=== PATIENT | male | born 1945 | race Caucasian/White ===

== ENCOUNTER 2019-06-20 14:03 | Inpatient (IN) | payer MEDICARE ==
[~2019-06-20] VITALS: Ht 182.9 cm; Wt 79.4 kg
[2019-06-20 14:57] LABS: BASOPHILS 0.1 % (0-2); EOSINOPHILS 0.5 % (0-7); HEMATOCRIT 46.6 % (42.0-54.0); HEMOGLOBIN 16.3 g/dL (13.5-17.5); IMMATURE GRANULOCYTES 0.1 % (0-5); LYMPHOCYTES 24.6 % (15-50); MCH 31.8 pg (26.0-34.0); MONOCYTES 6.9 % (2-11); NEUTROPHILS 67.8 % (40-80); PLATELET COUNT 215 10x3/uL (130-400); RBC 5.12 10x6/uL (4.20-6.10); WBC 8.1 10x3/uL (4.8-10.8)
[2019-06-20 15:16] LABS: CALC OSMOLALITY 274 mosm/kg (275-300); CALCIUM 9.1 mg/dL (8.5-10.1); CARBON DIOXIDE 25.9 mmol/L (21.0-32.0); CHLORIDE - SERUM 101 mmol/L (98-107); CREATININE - SERUM 0.9 mg/dL (0.6-1.3); GLUCOSE 160 mg/dL (74-106); POTASSIUM - SERUM 3.9 mmol/L (3.5-5.1); SODIUM 135 mmol/L (136-145); UREA NITROGEN 18 mg/dL (7-18); eGFR NON AFRICAN AMERICAN 88 mL/min (90-120)
[2019-06-20 15:37] LABS: ALBUMIN 3.5 g/dL (3.4-5.0); ALKALINE PHOSPHATASE 63 U/L (30-120); CKMB 0.6 U/L (0.0-3.6); CREATINE KINASE 65 UL (21-232); FERRITIN 436 ng/mL (3-244); PROTEIN - SERUM 6.8 g/dL (6.4-8.2)
[2019-06-20 15:39] LABS: ALT (SGPT) < 6 U/L (10-68); C-REACTIVE PROTEIN < 0.2 mg/dL (0.0-0.9); TROPONIN-I < 0.017 ng/mL (0.000-0.060)
[2019-06-20] MEDS ORDERED: NEURONTIN600 MG PO (16:37)
[2019-06-20] MEDS ORDERED: CATAPRES0.1 MG PO (17:25)
[2019-06-20] MEDS ORDERED: BAYER CHEWABLE81 MG PO (17:25)
[2019-06-20] MEDS ORDERED: HYTRIN1 MG PO (17:25)
[2019-06-20] MEDS ORDERED: HYDROCHLOROTHIA25 MG PO (17:25)
[2019-06-20] MEDS ORDERED: NORVASC10 MG (17:25)
[2019-06-20] MEDS ORDERED: HYDROCODON-ACE1 EAC7 PO (17:26)
[2019-06-20] MEDS ORDERED: [UNRECOGNIZED DRUG - OTHER] TP (17:26)
[2019-06-20] MEDS ORDERED: ZOVIRAX800 MG PO (17:26)
[2019-06-20] MEDS ORDERED: PRED MILD 0.1210 ML RIGHT EYE (17:27)
[2019-06-20] MEDS ORDERED: ERYTHROMYCIN OPT1 GM OP (17:27)
[2019-06-20 17:29] VITALS: BP 116/75
[2019-06-20 20:32] VITALS: BP 152/75
[2019-06-20 20:58] VITALS: BP 152/75; BMI 23.8
[2019-06-21 00:23] VITALS: BP 135/80
--- NOTE | 2019-06-21 01:56 | NUR ---
RECEIVED REPORT FROM ER. ARRIVED TO FLOOR ON STRETCHER. ALERT AND ORIENTED X4. IV TO LT FA INFUSUING ROCEPHIN. NO REDNESS OR SWELLING TO IV SITE WITH DSG INTACT. STATES HE HAS RECENTLY BEEN DIAGNOSIED WITH SHINGLES TO HIS TO HIS RT EYE. C/O PAIN TO RT EYE. NOTIFIED Marichuy [facility]AA[facility] APN ABOUT SHINGLES AND ALLERGY TO CODEINE AND ALERT ON MORPHINE. STATES FIND OUT WHAT MEDICATION HE IS TAKING AND RESTART. REVIEWED MED LIST AND RESTARTED ERYTHROMYCIN OPTH. ALSO N.O TO RESTART GABAPENTIN. WHEN REENTERED ROOM PT WAS ASLEEP. REPORTED TWO FALLS EARLIER TODAY AT HOME. FALL PRECAUTIONS IN PLACE. ASSESSMENTS COMPLETED.
[2019-06-21 06:02] LABS: BASOPHILS 0.3 % (0-2); HEMATOCRIT 41.1 % (42.0-54.0); HEMOGLOBIN 13.7 g/dL (13.5-17.5); IMMATURE GRANULOCYTES 0.3 % (0-5); MCHC 33.3 g/dL (31.0-37.0); MEAN PLATELET VOLUME 10.2 fL (7.4-10.4); MONOCYTES 6.4 % (2-11); PLATELET COUNT 183 10x3/uL (130-400); RBC 4.42 10x6/uL (4.20-6.10); RDW 13.1 % (11.5-14.5); WBC 7.8 10x3/uL (4.8-10.8)
[2019-06-21 06:13] LABS: CALC OSMOLALITY 279 mosm/kg (275-300); CALCIUM 8.1 mg/dL (8.5-10.1); CHLORIDE - SERUM 104 mmol/L (98-107); CREATININE - SERUM 0.8 mg/dL (0.6-1.3); GLUCOSE 142 mg/dL (74-106); POTASSIUM - SERUM 3.5 mmol/L (3.5-5.1); SODIUM 139 mmol/L (136-145); eGFR NON AFRICAN AMERICAN > 90 mL/min (90-120)
[2019-06-21 06:17] LABS: UREA NITROGEN 13 mg/dL (7-18)
--- NOTE | 2019-06-21 08:54 | NUR ---
PT SITTING ON SIDE OF BED AND BREAKFAST TRAY DELIVERED. RIGHT EYE SWOLLEN, RED, AND PAINFUL. PT STATES IT IS SHINGLES. EYE OINTMENT ON MAY.
[2019-06-21 09:50] VITALS: BP 122/84
--- NOTE | 2019-06-21 13:01 | NUR ---
ORTHOSTATIC BP FOLLOWS: LYING 140/89,92 HR, 97% PULSE OX. SITTING 140/83, 102 HR, 96% PULSE OX. STANDING 133/84, 110 HR, 97% PULSE OX.
[2019-06-21 16:27] LABS: BILIRUBIN NEGATIVE (NEGATIVE); GLUCOSE NEGATIVE (NEGATIVE); KETONE NEGATIVE (NEGATIVE); NITRITE NEGATIVE (NEGATIVE); UROBILINOGEN NORMAL (NORMAL)
--- NOTE | 2019-06-21 19:26 | NUR ---
RECEIVED LAYING IN BED WITH EYES OPEN. ALERT AND ORIENTED X4. UP AD DIANNA TO B/R. CONT TO REFUSE BED ALARM. O2@ 2 [address] PER NC IN PL[address]. IV TO LT FA WITH NS AT 75CC/HR. RT AND LT EYE JOSE ANGEL. C/O BLIND BEING OPEN TO AND THE SUNLIGHT REALLY BOTHERED HIS EYE. BLINDS CLOSED AT THIS TIME. KEEPS HAND OVER HIS RT EYE AND NOW COVERING LT EYE. DENIES ANY PAIN TO LF EYE.
[2019-06-21 22:04] VITALS: BP 148/105
[2019-06-21 22:47] VITALS: BP 144/94
--- NOTE | 2019-06-22 00:33 | NUR ---
C/O PAIN TO RT EYE AT 10 AND LIGHT SENSATIVE. HAD BEEN RUBBING THE EYE. ASKED IF IT WAS DRAINING AND HE SAID A LITTLE BIT. EXPLAINED THAT IT WAS CONTAGEOUS. PLACED 2X2 AND NON ADHERENT PAD ON EYE. ASKED HIM TO WASH HIS HANDS FREQUENTLY. REMAINS IN ISOLATION. MORPHINE GIVEN FOR PAIN. SHORTLY AFTER HR BECAME IRREGULAR SPIKEING UP TO 150 AND 140'S. B/P HAD ALS BEEN ELEVATED. CALLED [facility] WITH NEW ORDERS. PT AWARE OF NEW ORDERS. WHEN SPEAKING TO CIGAR HEAD PIERCER PULSE HAD DROPPED TO 87 AND SR. BLOOD PRESSURE HAS ALSO LOWERED TO 144/80. NEW ORDERS ARE APRESOLINE 10 MG IV FOR B/P <170 OR DIASTOLIC >105. CONSULT FOR CARDIOLOGY AND PHARMACY CONSULT FOR PREDNISON EYE GTT. RESTING IN BED WITH EYES CLOSED AT THIS TIME.WILL CONT. TO OBSERVE.
[2019-06-22 03:44] VITALS: BP 159/104
[2019-06-22 05:48] LABS: BASOPHILS 0.4 % (0-2); EOSINOPHILS 2.3 % (0-7); HEMATOCRIT 42.4 % (42.0-54.0); HEMOGLOBIN 14.2 g/dL (13.5-17.5); IMMATURE GRANULOCYTES 0.3 % (0-5); LYMPHOCYTES 33.8 % (15-50); MCH 31.2 pg (26.0-34.0); MCHC 33.5 g/dL (31.0-37.0); MCV 93.2 fL (80.0-100.0); MEAN PLATELET VOLUME 10.5 fL (7.4-10.4); MONOCYTES 8.1 % (2-11); NEUTROPHILS 55.1 % (40-80); PLATELET COUNT 203 10x3/uL (130-400); RBC 4.55 10x6/uL (4.20-6.10); RDW 12.9 % (11.5-14.5)
[2019-06-22 05:51] LABS: CALCIUM 8.6 mg/dL (8.5-10.1); CARBON DIOXIDE 30.7 mmol/L (21.0-32.0); CHLORIDE - SERUM 104 mmol/L (98-107); CREATININE - SERUM 0.8 mg/dL (0.6-1.3); GLUCOSE 146 mg/dL (74-106); SODIUM 141 mmol/L (136-145); eGFR NON AFRICAN AMERICAN > 90 mL/min (90-120)
[2019-06-22 05:54] LABS: CALC OSMOLALITY 281 mosm/kg (275-300); POTASSIUM - SERUM 4.3 mmol/L (3.5-5.1); UREA NITROGEN 6 mg/dL (7-18)
--- NOTE | 2019-06-22 09:18 | NUR ---
PT RESTING IN BED A/O X4. VSS. AFEBRILE AT THIS TIME. PT DENIES ANY SOB. 98% RA. PT EYES SENSITIVE TO LIGHT. PT COMPLAINS OF ITCHY PAINFUL EYES. WAITING FOR PREDNISONE EYEDROPS FROM PHARMACY. BED LOW CALL LIGHT WITHIN REACH. WILL CONTINUE TO MONITOR.
[2019-06-22 09:23] VITALS: BP 158/98
[2019-06-22 09:50] VITALS: Ht 182.9 cm; Wt 79.4 kg
--- NOTE | 2019-06-22 11:41 | NUR ---
I have reviewed this patient and I concur with the Shift Assessment completed by the Licensed Practical Nurse today this shift.
--- NOTE | 2019-06-22 14:25 | MORECARE ---
CASE MANAGEMENT DISCHARGE SUMMARY PATIENT: ARIELLE GARSIA UNIT: [id number] ADM DATE: 06/20/19 AGE: 73 : 46 SEX: M ROOM/BED: D.2129 AUTHOR: RAJENDRA IBRAHIM PHYSICIAN: REFERRING PHYSICIAN: DEO TUCKER MD DATE OF SERVICE: 06/22/19 Discharge Plan Patient Name: ARIELLE GARSIA Facility: [facility]:[place] : 1945 Planned Disposition: Home Anticipated Discharge Date: Discharge Date: Expected LOS: Initial Reviewer: [email or web address] Initial Review Date: 06/22/2019 Generated: 06/22/19 3:25 pm Patient Name: ARIELLE GARSIA Page 12120 at 1425 All edits/amendments must be made on the electronic document DICTATION DATE: 06/22/19 1425 UPPER INSPECTOR: NIDA 06/22/19 1425 RPT#: [id number] DC DATE: STATUS: ADM IN [facility] [address] [place] [address] END OF REPORT
--- NOTE | 2019-06-22 14:32 | MORECARE ---
CASE MANAGEMENT DISCHARGE SUMMARY PATIENT: ARIELLE GARSIA UNIT: [id number] ADM DATE: 06/20/19 AGE: 73 : 46 SEX: M ROOM/BED: D.2129 AUTHOR: RAJENDRA IBRAHIM PHYSICIAN: REFERRING PHYSICIAN: DEO TUCKER MD DATE OF SERVICE: 06/22/19 Discharge Plan Patient Name: ARIELLE GARSIA [facility] [facility] 1945 Planned Disposition: Home Anticipated Discharge Date: Discharge Date: Expected LOS: Initial Reviewer: [email or web address] Initial Review Date: 06/22/2019 Generated: 06/22/19 3:32 pm DCPIA - Discharge Planning Initial Assessment Updated by [email or web address]: Neptali Lau on 06/22/19 2:26 pm * Is the patient Alert and Oriented? Yes * How many steps to enter\exit or inside your home? * PCP [facility] * Pharmacy [facility] * Preadmission Environment Home with Family * ADLs Independent * Equipment None * Other Equipment [facility] - PREFERRED MEDICAL EQUIPMENT PROVIDER * List name and contact numbers for known caregivers / representatives who currently or will assist patient after discharge: DEB ANNE, SPOUSE, * Verbal permission to speak to the caregivers and representatives has been obtained from the patient. N/A * Community resources currently utilized None * Please name any agencies selected above. NONE * Additional services required to return to the preadmission environment? No * Can the patient safely return to the preadmission environment? Yes * Has this patient been hospitalized within the prior 30 days at any hospital? No Last DP export: 06/22/19 1:25 p Patient Name: ARIELLE GARSIA Page 54190 at 1432 All edits/amendments must be made on the electronic document DICTATION DATE: 06/22/191431 DUST CONTROL ENGINEER: NIDA 06/22/191431 RPT#: [id number] DC DATE: STATUS: ADM IN [facility] [address] [place] [address] END OF REPORT
--- NOTE | 2019-06-22 14:39 | MORECARE ---
CASE MANAGEMENT DISCHARGE SUMMARY PATIENT: ARIELLE GARSIA UNIT: [id number] ADM DATE: 06/20/19 AGE: 73 : 46 SEX: M ROOM/BED: D.8534 AUTHOR: ALEXANDRIA,DOC PHYSICIAN: REFERRING PHYSICIAN: DEO TUCKER MD DATE OF SERVICE: 06/22/19 Discharge Plan Patient Name: ARIELLE GARSIA Facility: [facility]:[place] : 1945 Planned Disposition: Home Anticipated Discharge Date: Discharge Date: Expected LOS: Initial Reviewer: [email or web address] Initial Review Date: 06/22/2019 Generated: 06/22/19 3:38 pm Comments DCP- Discharge Planning Updated by [email or web address]: Neptali Lau on 06/22/19 1:[address] Patient Name: ARIELLE GARSIA Admission Status: ER Accout number: [id number] Admission Date: 06-20-2019 : 1945 Admission Diagnosis: Attending: DEO TUCKER Current LOS: 2 Anticipated DC Date: Planned Disposition: Home Primary Insurance: MEDICARE A & B Discharge Planning Comments: CM SPOKE TO PT VIA ROOM PHONE, DUE TO INFECTION CONTROL PROTOCOL, TO DISCUSS DISCHARGE PLANNING AND NEEDS. PT REPORTS LIVING AT HOME INDEPENDENTLY WITH HIS . PT HAS NO MEDICAL EQUIPMENT AND NO OUTSIDE SERVICES ASSISTING IN THE HOME. CM DISCUSSED AVAILABILITY OF HOME HEALTH, REHAB SERVICES AND MEDICAL EQUIPMENT. PT DENIES DISCHARGE NEEDS, REPORTS HIS WILL PICK HIM UP FOR DISCHARGE HOME. PT IS A AND DOES NOT KNOW IF THE VA WAS NOTIFIED OF HIS ADMISSION. CM CALLED [place] [facility], , NOTIFIED ELIEZER OF PT'S ADMISSION. CM NOTIFIED PT THAT THE VA IS NOT ACCEPTING TRANSFERS OF PT'S THAT CAN BE CARED FOR IN THE COMMUNITY. PT PLANS TO DISCHARGE HOME WITH AT DISCHARGE, HAS NO ANTICIPATED DISCHARGE NEEDS. FAMILY TO TRANSPORT HOME AT DISCHARGE. CM TO FOLLOW AND ASSIST IF NEEDED. Dairy Scientist: Neptali Lau DCPIA - Discharge Planning Initial Assessment Updated by [email or web address]: Neptali Lau on 06/22/19 2:26 pm * Is the patient Alert and Oriented? Yes * How many steps to enter\exit or inside your home? * PCP [facility] * [facility]acy [facility] * Preadmission Environment Home with Family * ADLs Independent * Equipment None * Other Equipment [employer] - PREFERRED MEDICAL EQUIPMENT PROVIDER * List name and contact numbers for known caregivers / representatives who currently or will assist patient after discharge: DEB ANNE, SPOUSE, * Verbal permission to speak to the caregivers and representatives has been obtained from the patient. N/A * Community resources currently utilized None * Please name any agencies selected above. NONE * Additional services required to return to the preadmission environment? No * Can the patient safely return to the preadmission environment? Yes * Has this patient been hospitalized within the prior 30 days at any hospital? No Last DP export: 06/22/19 1:32 p Patient Name: ARIELLE GARSIA Page 65191 at 1439 All edits/amendments must be made on the electronic document DICTATION DATE: 06/22/191437 CHILD STUDY TEAM DIRECTOR: NIDA 06/22/191437 RPT#: [id number] DC DATE: STATUS: ADM IN [facility] [address] [place] [address] END OF REPORT
[2019-06-22 20:32] VITALS: BP 140/98
[2019-06-23 04:45] LABS: BASOPHILS 0.4 % (0-2); EOSINOPHILS 1.8 % (0-7); HEMATOCRIT 43.5 % (42.0-54.0); HEMOGLOBIN 14.8 g/dL (13.5-17.5); IMMATURE GRANULOCYTES 0.4 % (0-5); LYMPHOCYTES 28.7 % (15-50); MCH 31.3 pg (26.0-34.0); MEAN PLATELET VOLUME 10.2 fL (7.4-10.4); MONOCYTES 7.8 % (2-11); NEUTROPHILS 60.9 % (40-80); PLATELET COUNT 214 10x3/uL (130-400); RBC 4.73 10x6/uL (4.20-6.10); RDW 12.7 % (11.5-14.5); WBC 8.6 10x3/uL (4.8-10.8)
[2019-06-23 05:11] LABS: CALC OSMOLALITY 276 mosm/kg (275-300); CALCIUM 8.7 mg/dL (8.5-10.1); CARBON DIOXIDE 27.2 mmol/L (21.0-32.0); CHLORIDE - SERUM 102 mmol/L (98-107); CREATININE - SERUM 0.8 mg/dL (0.6-1.3); GLUCOSE 145 mg/dL (74-106); SODIUM 138 mmol/L (136-145); UREA NITROGEN 7 mg/dL (7-18); eGFR NON AFRICAN AMERICAN > 90 mL/min (90-120)
[2019-06-23 05:19] LABS: POTASSIUM - SERUM 3.6 mmol/L (3.5-5.1)
--- NOTE | 2019-06-23 08:00 | NUR ---
PT LYING SEMI FOWLERS IN BED. RR EVEN AND UNLABORED ON 2L NC. PT CURRENTLY COMPLAINS OF BILAT EYE PAIN. BED LOCKED AND IN LOWEST POSITION, CALL LIGHT AND PHONE WITHIN REACH. WILL CTM
[2019-06-23 13:26] VITALS: BP 135/90
--- NOTE | 2019-06-23 13:52 | EC ---
PATIENT:ARIELLE GARSIA DATE OF SERVICE: 06/20/19 SEX: M MEDICAL RECORD: [id number] DATE OF : [birth year] LOCATION:D.M2 D.212 AGE OF PATIENT: 73 ADMISSION DATE: 06/20/19 REFERRING PHYSICIAN: INTERPRETING PHYSICIAN: SOFÍA DOMINGUEZ MD ECHOCARDIOGRAM REPORT ECHO CHARGES 4 ECHO COMPLETE Date: 06/22/19 CLINICAL DIAGNOSIS: SVT ECHOCARDIOGRAPHIC MEASUREMENTS (adult normal given) AC root (d.<3.7cm) 3.7 cm LV Septum d (<1.2 cm> 1.2 cm Valve Excursion 1.9 cm LV Septum (systole) 1.5 cm Left Atria (s.<4.0cm> 4.0 cm LVPW d(<1.2cm) 1.7 cm RV (d.<2.3cm) 3.6 cm LVPW (sytole) 2.0 cm LV diastole(<5.6CM) 5.1 cm MV E-F(>70mm/sec) cm LV systole 3.6 cm LVOT Diameter 2.5 cm MV exc.(>10mm) cm Est.ejection fraction (50-75%) % DOPPLER: LVIT cm/sec A 73.0 cm/sec E 39.0 cm/sec LA cm/sec RVSP 25 mmHg LVOT 72 cm/sec AOP1/2T m/s Asc. Ao 122 cm/sec RVOT 76 cm/sec RA cm/sec PA 108 cm/sec AV Gradient Peak 5.93 mmHg AV Mean 3.56 mmHg AV Area 3.4 cm MV Gradient Peak 1.95 mmHg MV Mean 0.86 mmHg MV Area cm COMMENTS: Selenium Plant Operator: 2 ANALI CASTRO Ssrs Developer: 3 Dr. Wagoner TAPE# PACS Pericardial Effusion N DATE OF SERVICE: Adequate 2D, color flow imaging, spectral Doppler, and M-Mode. Borderline LVH. LV internal dimensions are normal. Wall motion is normal. EF is greater than or equal to 55%. Aortic valve is tricuspid. No evidence of stenosis by Doppler interrogation. Left atrium is normal. Mitral valve shows no prolapse. Trace MR. Right-sided chambers are grossly normal. Trace TR. TRANSINT:[id number] Voice Confirmation ID: [id number] DOCUMENT ID: [id number] ECHOCARDIOGRAM REPORT [id number] ARIELLE GARSIA SOFÍA DOMINGUEZ MD at 1352 CC: [id number] DICTATION DATE: 06/23/1928 SHANK CARRIER: 06/23/19 0950 ADM IN [place] [id number] [place] [id number]
[2019-06-23 16:44] VITALS: BP 140/85
--- NOTE | 2019-06-23 18:08 | NUR ---
I have reviewed this patient and I concur with the Shift Assessment completed by the Licensed Practical Nurse today this shift.
[2019-06-23 20:32] VITALS: BP 148/87
[2019-06-24 07:08] LABS: BASOPHILS 0.7 % (0-2); HEMOGLOBIN 14.1 g/dL (13.5-17.5); IMMATURE GRANULOCYTES 0.2 % (0-5); LYMPHOCYTES 40.2 % (15-50); MCHC 33.6 g/dL (31.0-37.0); MCV 92.3 fL (80.0-100.0); MEAN PLATELET VOLUME 10.2 fL (7.4-10.4); MONOCYTES 10.8 % (2-11); NEUTROPHILS 46.1 % (40-80); PLATELET COUNT 202 10x3/uL (130-400); RBC 4.55 10x6/uL (4.20-6.10); RDW 12.9 % (11.5-14.5)
[2019-06-24 07:09] LABS: WBC 6.1 10x3/uL (4.8-10.8)
[2019-06-24 07:40] LABS: CALC OSMOLALITY 274 mosm/kg (275-300); CALCIUM 8.3 mg/dL (8.5-10.1); CARBON DIOXIDE 28.2 mmol/L (21.0-32.0); CHLORIDE - SERUM 102 mmol/L (98-107); CREATININE - SERUM 0.7 mg/dL (0.6-1.3); GLUCOSE 125 mg/dL (74-106); POTASSIUM - SERUM 3.6 mmol/L (3.5-5.1); SODIUM 138 mmol/L (136-145); UREA NITROGEN 6 mg/dL (7-18); eGFR NON AFRICAN AMERICAN > 90 mL/min (90-120)
--- NOTE | 2019-06-24 08:05 | NUR ---
PT LYING ON RIGHT SIDE. RR EVEN AND UNLABORED ON RA. PT HAS 2 L FA PIV, ONE IS SL AND THE OTHER IS INFUSING NS @ 75. BED LOCKED AND IN LOWEST POSITION, CALL LIGHT AND PHONE WITHIN REACH. WILL CTM
[2019-06-24 08:12] VITALS: BP 150/92
--- NOTE | 2019-06-24 12:04 | NUR ---
I have reviewed this patient and I concur with the Shift Assessment completed by the Licensed Practical Nurse today this shift.
[2019-06-24] MEDS ORDERED: TOPROL XL25 MG PO (12:43)
[2019-06-24] MEDS ORDERED: AKWA TEARS15 ML EACH EYE (12:44)
[2019-06-24] MEDS ORDERED: LEVAQUIN750 MG PO (13:26)
[2019-06-24] MEDS ORDERED: DOXYCYCLINE HY100 M2 PO (13:26)
--- NOTE | 2019-06-24 13:51 | MORECARE ---
CASE MANAGEMENT DISCHARGE SUMMARY PATIENT: ARIELLE GARSIA UNIT: [id number] ADM DATE: 06/20/19 AGE: 73 : 46 SEX: M ROOM/BED: D.3340 AUTHOR: ALEXANDRIA,DOC PHYSICIAN: REFERRING PHYSICIAN: DEO TUCKER MD DATE OF SERVICE: 06/24/19 Discharge Plan Patient Name: ARIELLE GARSIA Facility: [facility]:[place] : 1945 Planned Disposition: Home Anticipated Discharge Date: 06/24/19 Discharge Date: Expected LOS: 4 Initial Reviewer: [email or web address] Initial Review Date: 06/22/2019 Generated: 06/24/19 2:50 pm Comments DCP- Discharge Planning Updated by [email or web address]: Neptali Lau on 06/22/19 1:[address] Patient Name: ARIELLE GARSIA Admission Status: ER Accout number: [id number] Admission Date: 06-20-2019 : 1945 Admission Diagnosis: Attending: DEO TUCKER Current LOS: 2 Anticipated DC Date: Planned Disposition: Home Primary Insurance: MEDICARE A & B Discharge Planning Comments: CM SPOKE TO PT VIA ROOM PHONE, DUE TO INFECTION CONTROL PROTOCOL, TO DISCUSS DISCHARGE PLANNING AND NEEDS. PT REPORTS LIVING AT HOME INDEPENDENTLY WITH HIS . PT HAS NO MEDICAL EQUIPMENT AND NO OUTSIDE SERVICES ASSISTING IN THE HOME. CM DISCUSSED AVAILABILITY OF HOME HEALTH, REHAB SERVICES AND MEDICAL EQUIPMENT. PT DENIES DISCHARGE NEEDS, REPORTS HIS WILL PICK HIM UP FOR DISCHARGE HOME. PT IS A AND DOES NOT KNOW IF THE VA WAS NOTIFIED OF HIS ADMISSION. CM CALLED [place] [facility], , NOTIFIED ELIEZER OF PT'S ADMISSION. CM NOTIFIED PT THAT THE VA IS NOT ACCEPTING TRANSFERS OF PT'S THAT CAN BE CARED FOR IN THE COMMUNITY. PT PLANS TO DISCHARGE HOME WITH AT DISCHARGE, HAS NO ANTICIPATED DISCHARGE NEEDS. FAMILY TO TRANSPORT HOME AT DISCHARGE. CM TO FOLLOW AND ASSIST IF NEEDED. Veneer Jointer Offbearer: Neptali Lau DCPIA - Discharge Planning Initial Assessment Updated by [email or web address]: Neptali Lau on 06/22/19 2:26 pm * Is the patient Alert and Oriented? Yes * How many steps to enter\exit or inside your home? * PCP [facility] * Pharmacy [facility] [place] * Preadmission Environment Home with Family * ADLs Independent * Equipment None * Other Equipment [employer] - PREFERRED MEDICAL EQUIPMENT PROVIDER * List name and contact numbers for known caregivers / representatives who currently or will assist patient after discharge: DEB ANNE, SPOUSE, * Verbal permission to speak to the caregivers and representatives has been obtained from the patient. N/A * Community resources currently utilized None * Please name any agencies selected above. NONE * Additional services required to return to the preadmission environment? No * Can the patient safely return to the preadmission environment? Yes * Has this patient been hospitalized within the prior 30 days at any hospital? No External Providers External Provider: OTHER-OTHER Next Contact Date: 06/24/2019 Service Request Date: Service Type: Resolution: Reviewer: Comments: Coverage Notice Reviewer: [email or web address] - Neptali Lau Notice Issued Date-Time: 06/24/2019 13:30 Notice Type: IM Discharge Notice Notice Delivered To: Patient Relationship to Patient: Commercial Litigation Attorney Name: Delivery Method: HAND - Hand Delivered Luna Days: Prior Verbal Notification: Recipient Understood Notice: Yes Recipient Signature: Yes Med Rec Note Co-signed by Attending: Coverage Notice Comment: Last DP export: 06/22/19 1:39 p Patient Name: ARIELLE GARSIA Page 88389 at 1351 All edits/amendments must be made on the electronic document DICTATION DATE: 06/24/19 1350 FRUIT PACKER: NIDA 06/24/19 1350 RPT#: [id number] DC DATE: STATUS: ADM IN [facility] [address] [place] [address] END OF REPORT
--- NOTE | 2019-06-24 14:14 | NUR ---
TELEMTRY DC'D AND TAKEN TO DRAWING IN MACHINE TENDER HELPER. X2 LEFT FA 20G IV DC'D WITH CATH INTACT. DISCHARGE INSTRUCTIONS GIVEN TO PT. PT HAS NO FURTHER QUESTIONS. PT SIGNED CHART COPY. PT TO CALL RIDE AND HAVE THEM WAIT AT THE FRONT ENTRANCE AND CALL AND LET STAFF KNOW SO STAFF CAN TAKE PT DOWN IN WC.
--- NOTE | 2019-06-24 14:17 | MORECARE ---
CASE MANAGEMENT DISCHARGE SUMMARY PATIENT: ARIELLE GARSIA UNIT: [id number] ADM DATE: 06/20/19 AGE: 73 : 47 SEX: M ROOM/BED: D.4697 AUTHOR: ALEXANDRIA,DOC PHYSICIAN: REFERRING PHYSICIAN: DEO TUCKER MD DATE OF SERVICE: 06/24/19 Discharge Plan Patient Name: ARIELLE GARSIA Facility: [facility]:[place] : 1945 Planned Disposition: Home Anticipated Discharge Date: 06/24/19 Discharge Date: Expected LOS: 4 Initial Reviewer: [email or web address] Initial Review Date: 06/22/2019 Generated: 06/24/19 3:16 pm Comments DCP- Discharge Planning Updated by [email or web address]: Neptali Lau on 06/22/19 1:[address] Patient Name: ARIELLE GARSIA Admission Status: ER Accout number: [id number] Admission Date: 06-20-2019 : 1945 Admission Diagnosis: Attending: DEO TUCKER Current LOS: 2 Anticipated DC Date: Planned Disposition: Home Primary Insurance: MEDICARE A & B Discharge Planning Comments: CM SPOKE TO PT VIA ROOM PHONE, DUE TO INFECTION CONTROL PROTOCOL, TO DISCUSS DISCHARGE PLANNING AND NEEDS. PT REPORTS LIVING AT HOME INDEPENDENTLY WITH HIS . PT HAS NO MEDICAL EQUIPMENT AND NO OUTSIDE SERVICES ASSISTING IN THE HOME. CM DISCUSSED AVAILABILITY OF HOME HEALTH, REHAB SERVICES AND MEDICAL EQUIPMENT. PT DENIES DISCHARGE NEEDS, REPORTS HIS WILL PICK HIM UP FOR DISCHARGE HOME. PT IS A AND DOES NOT KNOW IF THE VA WAS NOTIFIED OF HIS ADMISSION. CM CALLED [place] [facility], , NOTIFIED ELIEZER OF PT'S ADMISSION. CM NOTIFIED PT THAT THE VA IS NOT ACCEPTING TRANSFERS OF PT'S THAT CAN BE CARED FOR IN THE COMMUNITY. PT PLANS TO DISCHARGE HOME WITH AT DISCHARGE, HAS NO ANTICIPATED DISCHARGE NEEDS. FAMILY TO TRANSPORT HOME AT DISCHARGE. CM TO FOLLOW AND ASSIST IF NEEDED. Database Consultant: Neptali Lau DCPIA - Discharge Planning Initial Assessment Updated by [id number]: Neptali Lau on 06/22/19 2:26 pm * Is the patient Alert and Oriented? Yes * How many steps to enter\exit or inside your home? * PCP [facility] * [facility] * Preadmission Environment Home with Family * ADLs Independent * Equipment None * Other Equipment [employer] - PREFERRED MEDICAL EQUIPMENT PROVIDER * List name and contact numbers for known caregivers / representatives who currently or will assist patient after discharge: DEB ANNE, SPOUSE, * Verbal permission to speak to the caregivers and representatives has been obtained from the patient. N/A * Community resources currently utilized None * Please name any agencies selected above. NONE * Additional services required to return to the preadmission environment? No * Can the patient safely return to the preadmission environment? Yes * Has this patient been hospitalized within the prior 30 days at any hospital? No Coverage Notice Reviewer: [email or web address] Kiara Lau Notice Issued Date-Time: 06/24/2019 13:30 Notice Type: IM Discharge Notice Notice Delivered To: Patient Relationship to Patient: Director Of Volunteer Services Name: Delivery Method: HAND - Hand Delivered Luna Days: Prior Verbal Notification: Recipient Understood Notice: Yes Recipient Signature: Yes Med Rec Note Co-signed by Attending: Coverage Notice Comment: Last DP export: 06/24/19 12:51 pm Patient Name: ARIELLE GARSIA Page 17988 at 1417 All edits/amendments must be made on the electronic document DICTATION DATE: 06/24/191415 DIRECTOR CORPORATE SECURITY: NIDA 06/24/191415 RPT#: [id number] DC DATE: STATUS: ADM IN [facility] [address] [place] [address] END OF REPORT
--- NOTE | 2019-06-24 15:21 | NUR ---
PT TAKEN DOWN VIA WC WITH ALL OF BELONGINGS AND LEFT WITH FAMILY MEMBER IN PERSONAL VEHICLE.
== END 2019-06-24 15:22 | disposition home or self-care (01) | DRG 178 ==
LOC: D.ER 14:03 → D.M2 18:10
PROVIDERS: Family Medicine; ADMIT Internal Medicine Nephrology; ATTEND Internal Medicine Nephrology
DX: J15.6 Pneumonia due to other Gram-negative bacteria (principal); I47.1 Supraventricular tachycardia; I10 Essential (primary) hypertension; J15.212 Pneumonia due to Methicillin resistant Staphylococcus aureus; H57.11 Ocular pain, right eye; E11.9 Type 2 diabetes mellitus without complications; N40.0 Benign prostatic hyperplasia without lower urinary tract symptoms; Z20.828 Contact with and (suspected) exposure to other viral communicable diseases